=== PATIENT | female | born 1945 | race Caucasian/White ===

== ENCOUNTER → 2018-09-14 | Day surgery (SDC) | payer OTHER, MEDICARE ==
[2018-09-14 10:16] VITALS: BMI 25.2
[2018-09-14 11:06] VITALS: TEMP 98.1
[2018-09-14 11:15] VITALS: PULSE 60
[2018-09-14 12:10] VITALS: BP 124/59
--- NOTE | 2018-09-17 18:36 | PATH ---
Surgical Pathology Report Patient Name: FERNANDO YORK [facility]. Rec. #: [id number] /Age/Gender: 1945 (Age: 73) / F Account: [id number] Location: U-ENDOSCOPY Taken: 09/14/2018 Received: 09/14/2018 Reported: 09/17/2018 Physicians: Charles Cuellar M.D. Specimen(s) Received A: BX DUODENUM B: BX ANTRUM Clinical History Abdominal pain, weight loss Postoperative diagnosis: Gastritis, duodenitis Final Diagnosis A. DUODENUM, SECOND PORTION AND BULB, BIOPSY: DUODENAL MUCOSA WITH MILD CHRONIC DUODENITIS. B. STOMACH, ANTRUM, BIOPSY: GASTRIC ANTRAL MUCOSA WITH MILD CHRONIC GASTRITIS. IMMUNOHISTOCHEMICAL STAIN FOR H. PYLORI IS NEGATIVE. Electronically Signed Maryse Dong M.D. Gross Description A. Received in formalin, labeled "biopsy second portion of duodenum and bulb" are 4 penaloza, irregular portions of soft tissue ranging from 0.1-0.4 cm. in greatest dimension. The specimens are submitted in toto in one cassette. B. Received in formalin, labeled "biopsy antrum" are 4 penaloza, irregular portions of soft tissue ranging from 0.2-0.4 cm. in greatest dimension. The specimens are submitted in toto in one cassette. 09/14/201809/14/2018
== END | disposition home or self-care (01) ==
LOC: EDBD → JASU-ENDO 08:54
PROVIDERS: ATTEND Internal Medicine Gastroenterology
PROC: 0DB98ZX Excision of Duodenum, Via Natural or Artificial Opening Endoscopic, Diagnostic (ICD-10-PCS; principal; 2018-09-14 09:45)
DX: K25.9 Gastric ulcer, unspecified as acute or chronic, without hemorrhage or perforation (principal); K29.80 Duodenitis without bleeding
CPT/HCPCS: 88305-TC; 88342-TC